=== PATIENT | female | born 1935 | race Caucasian/White ===

== ENCOUNTER 2016-09-27 19:06 | Inpatient (IN) | payer MEDICARE ==
[~2016-09-27] VITALS: Ht 152.4 cm; Wt 54.2 kg
[~2016-09-27 19:06] MED LIST: ANUSOL-HC25 MG RC; ARICEPT5 MG PO; ATIVAN0.5 MG PO; BYSTOLIC5 MG PO; DULCOLAX5 MG PO; HCTZ25 MG PO; MILK OF MAGNESI30 ML PO; SENOKOT-S TABLE1 TAB PO; ZESTRIL40 MG PO
[2016-09-27 19:30] VITALS: BP 193/76
[2016-09-27] MEDS ORDERED: MILK OF MAGNESI30 ML PO (20:02)
[2016-09-27] MEDS ORDERED: NATURAL SENNA8.6 MG PO (20:04)
[2016-09-27] MEDS ORDERED: ZESTRIL20 MG PO (20:05)
[2016-09-27] MEDS ORDERED: ZOLOFT100 MG PO (20:06)
[2016-09-27] MEDS ORDERED: VITAMIN D10000 UNI1 PO (20:06)
[2016-09-27] MEDS ORDERED: ORA RELIEF177 ML PO (20:08)
[2016-09-27] MEDS ORDERED: ACETAMINOPHEN325 MG PO (20:13)
--- NOTE | 2016-09-27 20:16 | NUR ---
PATIENT ARRIVED VIA STRETCHER WITH THREE EMS ASSITING HER, PATIENT HAD BEEN SUICIDAL AND SCREAMING AT THE SENIOR LIVING, SHE WAS VERY UPSET AND AGITATED, SHE HAS TWO SONS THAT YEARS AGO FROM MUSCULAR DYSTROPHY AND SOMEHOW SHE IS VERY UPSET ABOUT THAT. WHEN PATIENT ARRIVED SHE WAS ASSISTED TO A CHAIR AND THEN SHE WAS TAKEN TO HER ROOM TO DO A SKIN ASSESSMENT AND SHE HAD WET HER PANTS SO WE CLEANED HER UP AND PUT ON DEPENDS AND A GOWN. HER SHOES WITH TRINIDAD LACES AND BELT WERE TAKEN FROM HER AT THIS TIME. PATIENT IS DISTRAUGHT AND KEEPS ASKING "WHERE'S ELTON" ELTON IS HER SPOUSE. SHE THEN STARTED YELLING FOR HIM. EXPLAINED THAT HE WOULD SEE HER TOMORROW, SHE IS IN THE HOSPITAL SHE HAD TO COME BECAUSE SHE WAS SCREAMING AND YELLING THAT SHE WANTED TO COMMIT SUICIDE. SHE SAID "WELL, WOULDN'T YOU IF YOUR TWO BABY SONS " SHE IS VERY UPSET, RAHUL AND THIS NURSE TALKED WITH HER IN A CALM VOICE AND SHE RELAXED A LITTLE, BUT SHE CONTINUES TO ASK FOR HER .
[2016-09-27 20:36] VITALS: BP 193/76; BMI 19.7
[2016-09-27 21:21] LABS: BASOPHILS 0.4 % (0.0-2.0); EOSINOPHILS 3.2 % (0-7); HEMATOCRIT 35.7 % (36.0-48.0); HEMOGLOBIN 11.6 g/dL (12-16); IMMATURE GRANULOCYTES 0.3 % (0-5); LYMPHOCYTES 22.8 % (15-50); MCH 29.3 pg (26.0-34.0); MCHC 32.5 g/dL (31.0-37.0); MCV 90.2 fL (80.0-100.0); MEAN PLATELET VOLUME 9.7 fL (7.4-10.4); MONOCYTES 7.6 % (2-11); NEUTROPHILS 65.7 % (40-80); PLATELET COUNT 224 10x3/uL (130-400); RBC 3.96 10x6/uL (4.00-5.40); RDW 13.8 % (11.5-14.5); WBC 6.8 10x3/uL (4.8-10.8)
[2016-09-27 21:36] LABS: HEMOGLOBIN A1C 5.8 % (4.8-6.0)
[2016-09-27 21:47] LABS: ALBUMIN 3.7 g/dL (3.4-5.0); ANION GAP 12.6 mmol/L (8-16); BILIRUBIN - TOTAL 0.23 mg/dL (0.2-1.3); CALCIUM 8.5 mg/dL (8.5-10.1); CREATININE - SERUM 1.1 mg/dL (0.6-1.3); LDL-HDL RATIO 3.8 ratio (1.5-3.5); POTASSIUM - SERUM 3.6 mmol/L (3.5-5.1); PROTEIN - SERUM 6.7 g/dL (6.4-8.2); THYROID STIMULATING HORMONE 2.19 uIU/mL (0.36-3.74)
--- NOTE | 2016-09-28 02:47 | NUR ---
B) Recieved at the nurses station, arrived at the start of shift, alert and oriented to self, looking for here Suman, very confused, and worried, I) Administered perscribed medications, redirected and oriented as needed, R) Medication compliant, resting now quietly, P) Continue plan of care, continue to monitor.
[2016-09-28 07:30] VITALS: BP 191/91
[2016-09-28 14:26] LABS: APPEARANCE CLEAR (CLEAR); BACTERIA MODERATE /hpf (NONE SEEN); BILIRUBIN NEGATIVE (NEGATIVE); COLOR YELLOW (YELLOW); EPITHELIAL CELLS 0-5 /hpf (0-5); GLUCOSE NEGATIVE (NEGATIVE); KETONE NEGATIVE (NEGATIVE); LEUKOCYTE ESTERASE 1+ (NEGATIVE); NITRITE NEGATIVE (NEGATIVE); PH 5.5 (5.0-6.0); PROTEIN 3+ mg/dL (NEGATIVE); RED CELLS - URINE 0-5 /hpf (0-5); SPECIFIC GRAVITY 1.015 (1.005-1.020); UROBILINOGEN NORMAL (NORMAL); WHITE CELLS - URINE 0-5 /hpf (0-5)
--- NOTE | 2016-09-28 17:05 | NUR ---
ORIENTED TO PERSON ONLY. DIFFICULT TO REDIRECT. FREQUENT REDIRECTION DONE WITH NO EVIDENCE OF RETAINING. DENIES SI BUT DOES BECOME TEARFUL WHEN TALKING ABOUT MISSING HER . ALLOWED PT TO TALK TO SPOUSE ON THE PHONE TO HELP CALM HER. COPING SKILLS USED TO HELP PT CALM DOWN. PT PACING THE UNIT AND VERY ANXIOUS. REASSURANCE GIVEN TO PT THAT SHE IS SAFE BUT PT DOES NOT UNDERSTAND. ADMINISTERED MEDICATIONS AND PT WAS COMPLIANT. WILL CONTINUE TO MONITOR AND CONTINUE WITH PLAN OF CARE.
[2016-09-28 19:30] VITALS: BP 185/73
--- NOTE | 2016-09-28 20:07 | NUR ---
RECEIVED IN DAYROOM. SETTING IN CHAIR WITH PEERS AT HER SIDE. SOCIAL AT TIMES. NO SIGNS OF AGGRESSION. CALM AND COOPERATIVE WITH CARE AND ASSESSMENT. ENCOURAGE TO EXPRESS NEEDS. REORIENT NEEDED. CONTINUES TO SET QUEITLY. CONTINUE PLAN OF CARE
[2016-09-29 11:40] VITALS: BP 181/76
--- NOTE | 2016-09-29 13:58 | PSY ---
PATIENT NAME:ELODIA PARNELL MEDICAL RECORD: [id number] : 31 LOCATION:[facility]8 ADMISSION DATE: 09/27/16 ACCOUNT: [id number] PSYCHIATRIC EVALUATION DATE OF EVALUATION: 09/28/16 IDENTIFYING DATA: The patient is 81 years old and she is known to me from previous clinical contact. CHIEF COMPLAINT: Confusion. HISTORY OF PRESENT ILLNESS: The patient is known to me from previous contact. She has a long and established history of dementia. She lives in [facility] and she has had a recent worsening of her confusion and has been combative and aggressive with caregivers. She denies that she lives in a long-term and becomes angry and then tearful when asked about any aggression toward others. She genuinely has no recollection of the events and so at least from her, I do not have any details about exactly what happened. The patient was here about 6 months ago and she was here for similar behaviors. At that time, she was also felt to be depressed. PAST MEDICAL HISTORY: Significant for hemorrhoids and chronic constipation. She also has a history of hypertension. FAMILY HISTORY: Negative for psychiatric disease. ALLERGIES: No known drug allergies. CURRENT MEDICATIONS: Includes Aricept, Bystolic, and Ativan. SOCIAL HISTORY: The patient is . She is a former smoker, but not a drinker. She apparently functioned reasonably well socially and occupationally. She unfortunately lost 2 of her children as teenagers to muscular dystrophy. MENTAL STATUS EXAMINATION: The patient is awake, alert and oriented to person, place and somewhat to time and situation. Her mood is anxious. Her affect is constricted. Thought processes are circumstantial. Memory, concentration and abstraction abilities are moderately impaired and she denies any intent to harm herself or others as well as psychotic symptoms. ASSETS: Supportive family members. LIABILITIES: Limited insight. DIAGNOSTIC IMPRESSION: AXIS I: Senile dementia of the Alzheimer's type with behavioral disturbances. Rule out major depression. AXIS II: None. AXIS III: Hypertension. AXIS IV: Moderate stressors. AXIS V: Global assessment of functioning is 35. PLAN: At this time, the patient is admitted to the hospital for a comprehensive medical, psychological, and social evaluation. She will be treated with both mood stabilizing and memory enhancing medications. Her long-term prognosis is guarded. TRANSINT:[id number] Voice Confirmation ID: [id number] DOCUMENT ID: [id number] JANEL PALMA MD at 1358 CC: [id number] DICTATION DATE: 09/28/16 1247 DROP WIRE BUILDER: 09/28/16 1347 ADM IN [place] [id number] [place] [id number]
--- NOTE | 2016-09-29 18:00 | NUR ---
Received patient this am, alert and oriented to name, not sure of place, cooperative with assessment. Reorient and redirect as need. Encourage activity and monitor safety. Compliant with medications, patient constantly saying she " I want to go home." she thinks she came from home and not [facility], attempts to reorient with patient becoming tearful and saying " I miss Santosh." No aggression or combativeness. Cooperative with care. Continue plan of care.
[2016-09-29 19:30] VITALS: BP 171/64
--- NOTE | 2016-09-29 23:57 | NUR ---
PATIENT WALKING AROUND DAY ROOM WANTING TO GO "UPSTAIRS". PATIENT EASILY REDIRECTED. ORIENTED TO SELF ONLY, NON-AGRESSIVE. CALM, COOPERATIVE WITH MEDICATION. CONTINUE TO MONITOR, CONTINUE PLAN OF CARE.
[2016-09-30 08:20] LABS: VITAMIN D 25 HYDROXY 45.4 ng/mL (30.0-100.0)
[2016-09-30 09:15] LABS: FOLATE (FOLIC ACID) - SERUM 10.6 ng/mL (>3.0)
[2016-09-30 12:28] VITALS: Ht 152.4 cm; Wt 54.2 kg
--- NOTE | 2016-09-30 12:57 | PN ---
PATIENT:ELODIA PARNELL MEDICAL RECORD: [id number] LOCATION:[facility]112 ADMISSION DATE: 09/27/16 PROGRESS NOTE DATE OF SERVICE: 09/29/2016 SUBJECTIVE: The patient's case was discussed with staff. She has no new complaint. OBJECTIVE: The patient is in good behavioral control with limited insight about her condition. She tolerates her medicines well. ASSESSMENT: No change in diagnoses. PLAN: The patient has not been aggressive today. She is eating and sleeping reasonably well. She does become somewhat agitated, especially when she is confused, but so far she has not been excessively difficult to redirect. I think her long-term prognosis is guarded. TRANSINT:[id number] Voice Confirmation ID: [id number] DOCUMENT ID: [id number] JANEL PALMA MD at 1257 CC: [id number] DICTATION DATE: 09/29/16 1416 WORM SORTER: 09/29/162126 ADM IN [place] [id number] [place] [address]
--- NOTE | 2016-09-30 13:00 | NUR ---
Alert and oriented to name. Paces around on unit, " Santosh, oh I miss my Santosh." Tearful at times, one on one time to express feeling. Calm and cooperative with care and redirects easily. No aggression, socializes with peers with no conflict. Good behavior contorl. Encourage to express feelings and needs. Safety maintained. Continue plan of care.
[2016-09-30 13:55] VITALS: BP 118/63
[2016-09-30 20:00] VITALS: BP 143/60
--- NOTE | 2016-09-30 20:41 | NUR ---
RECEIVED IN DAYROOM. WALKING AROUND AT TIMES. CONFUSED. CALM AND COOPERATIVE WITH CARE AND ASSESSMNET. NO SIGNS OF AGGRESSION. CONTINUES TO WALK ABOUT AT TIMES. CALM AND COOPERATIVE. CONTINUE PLAN OF CARE
[2016-10-01 08:00] VITALS: BP 162/65
--- NOTE | 2016-10-01 08:40 | PN ---
PATIENT:ELODIA PARNELL MEDICAL RECORD: [id number] LOCATION:[facility]ill112 ADMISSION DATE: 09/27/16 PROGRESS NOTE DATE OF SERVICE: 09/30/2016 SUBJECTIVE: The patient's case was discussed with staff. She has no new complaint. OBJECTIVE: The patient is in good behavioral control with limited insight about her condition. She does tolerate her medicines well. She has not been aggressive today. PLAN: She will be maintained on current medications and I suspect that she can be discharged from the hospital soon if this level of improvement is maintained. TRANSINT:[id number] Voice Confirmation ID: [id number] DOCUMENT ID: [id number] JANEL PALMA MD at 0840 CC: [id number] DICTATION DATE: 09/30/16 1309 VMWARE ADMINISTRATOR: 09/30/16 2132 ADM IN [place] [id number] [place] [address]
--- NOTE | 2016-10-01 11:03 | NUR ---
B) Patient is awake and alert and she has not mentioned any S.I. today. She is confused, knows her name only, she does not know where she is, but she remembers some of us, but does not know our names. I) Provide prescribed meds and redirect as needed to be calm and let her know she is in the hospital. R) Patient is compliant with meds and unit milieu. P) Continue plan of care.
[2016-10-01 19:57] VITALS: BP 170/68
--- NOTE | 2016-10-02 00:26 | NUR ---
B) Recieved ambulating in the day room, alert and oriented to self only, confused and worried about her , calm and cooperative, I) Administered perscribed medications, reassured patient, R) Medication compliant, friendly to staff, P) Continue plan of care, continue to monitor.
[2016-10-02 08:00] VITALS: BP 141/74
--- NOTE | 2016-10-02 14:00 | NUR ---
B) Patient is very anxious, she is upset about being here, then she goes on to say "no one likes me, she is being mean to me" She makes reference about her being a foster child and how she was treated badly by her foster mother and that we are treating her badly and she goes on and on with the negativity and has started making the other patients restless. Patient ambulates independently. I) Provided patient with ativan 0.5 mg po and haldol 2 mg po for anxiety. R) Patient has been compliant with meds. P) cont. POC.
--- NOTE | 2016-10-02 14:24 | PN ---
PATIENT:ELODIA PARNELL MEDICAL RECORD: [id number] LOCATION:[facility] Dill112 ADMISSION DATE: 09/27/16 PROGRESS NOTE DATE OF SERVICE: 10/01/2016 SUBJECTIVE: The patient's case was discussed with staff. She has no new complaint. OBJECTIVE: The patient denies intent to harm herself or others. She generally tolerates her medicines well. ASSESSMENT: No change in diagnoses. PLAN: The patient seems a little anxious to me today, but overall she has done better the past few days. Her long-term prognosis is guarded. TRANSINT:[id number] Voice Confirmation ID: [id number] DOCUMENT ID: [id number] JANEL PALMA MD at 1424 CC: [id number] DICTATION DATE: 10/01/16 1303 CLINICAL RESEARCHER: 10/01/16 1620 ADM IN [place] [address] [place] [address]
--- NOTE | 2016-10-02 14:30 | NUR ---
Patient still fussing and crying and not self calming or using any coping skills, have gone over some relaxation methods, but patient gets more and more irritable with staff. Other patients try to talk to her and she cries and says "I just want to be left alone".
--- NOTE | 2016-10-02 15:00 | NUR ---
Patient has calmed alittle not crying and has started to interact with her peers.
[2016-10-02 19:00] VITALS: BP 155/106
--- NOTE | 2016-10-03 03:13 | NUR ---
B) Recieved ambulating in the day room, alert and oriented to self, confused and worried about everything, I) Administered perscribed medications, redirected and oriented as needed, R) Medication compliant, pleasant and easy to redirect, P) Continue plan of care.
[2016-10-03 08:00] VITALS: BP 165/67
--- NOTE | 2016-10-03 16:11 | NUR ---
(B)RECEIVED PATIENT SITTING IN A CHAIR AT THE NURSES STATION. ORIENTED TO SELF AND RELATES "[place] POOR INSIGHT INTO THE REASON FOR HOSPITALIZATION. WHEN INFORMED PATIENT OF THE REASONS FOR HOSPITALIZATION PATIENT RELATES "I DIDN'T HIT ANYBODY. JUST TALKED. CUSSED. I WOULDN'T DO ANYTHING TO HURT MY ." PREOCCUPIED WITH AND WANTING TO SEE HIM AND GO HOME TO HIM. DELUSIONAL RELATING SHE AND HER ARE GOING TO HAVE TO MOVE SOON THAT WHERE THEY ARE LIVING WAS ONLY A TEMPORARY PLACE TO STAY AND THEY HAVE A PLACE ON A MOUNTAIN. SITS ALONE HOWEVER WILL TALK TO PEERS IF THEY APPROACH HER AND START A CONVERSATION. (I)ADMINISTER MEDS AND MONITOR COMPLIANCE. REORIENT NEEDED. (R)MED COMPLIANT. POOR REORIENTATION DUE TO IMPAIRED ABILITY TO COMPREHEND, PROCESS AND RETAIN INFORMATION. CONTINUES TO BE PREOCCUPIED WITH SEEING HER AND GOING HOME. COOPERATIVE HOWEVER CAN NOT SEPARATE REALITY FROM FANTASY. (P) CONTINUE POC AND MAINTAIN FALL PRECAUTIONS.
[2016-10-03 19:30] VITALS: BP 172/86
--- NOTE | 2016-10-04 00:02 | NUR ---
PATIENT IN DAYROOM, INTERACTING WITH PEERS. SHE IS ORIENTED TO PERSON, KNEW SHE WAS IN A HOSPITAL BUT SAID IT WAS IN [place]. PATIENT WAS REORIENTED. WHEN ASKED WHY SHE WAS HERE, PATIENT SAID BECAUSE SHE CUSSED AT SOMEONE, BUT "KNOWS NOW TO KEEP MY MOUTH SHUT". PATIENT CALM, COOPERATED WITH MEDICATION. CONTINUE TO MONITORM, CONTINUE PLAN OF CARE.
--- NOTE | 2016-10-04 17:02 | NUR ---
RECEIVED THIS AM SITTING IN CHAIR IN HALLWAY AT NURSES STATION.IS ORIENTED TO SELF AND TOWN.REORIENTED TO PLACE WITH QUESTIONABLE RESULTS.COMPLIANT WITH MEDS.SOCIALIZES WITH PEERS.AMBULATORY.WILL CONTINUE WITH PLAN OF CARE,MONITOR FOR CHANGES AND SAFETY.
[2016-10-04 19:30] VITALS: BP 188/56
--- NOTE | 2016-10-05 02:59 | NUR ---
PATIENT IN DAYROOM, SITTING NEXT TO PEER ON COUCH. PATIENT ORIENTED TO SELF AND SOME HOSPITAL, PATIENT REORIENTED. NON-COMBATIVE, ABILITY TO FOLLOW DIRECTIONS, PLEASANT. CALM AND COOPERATIVE WITH MEDICATION. CONTINUE TO MONITOR, CONTINUE PLAN OF CARE.
--- NOTE | 2016-10-05 06:10 | PN ---
PATIENT:ELODIA PARNELL MEDICAL RECORD: [id number] LOCATION:[facility] Dill112 ADMISSION DATE: 09/27/16 PROGRESS NOTE DATE OF SERVICE: 10/03/2016 SUBJECTIVE: No new complaint. OBJECTIVE: The patient remains rather irritable. She is fixated on somatic complaints primarily going to the bathroom. On exam, mood is irritable. Affect is shallow. Speech is terse. Content of thought focused on somatic concerns. Sensorium shows no change. ASSESSMENT: No change in diagnosis. PLAN: 1. Continue all current medications. 2. Continue supportive therapy. TRANSINT:[id number] Voice Confirmation ID: [id number] DOCUMENT ID: [id number] ZIA CHRISTOPHER III, MD at 0610 CC: [id number] DICTATION DATE: 10/03/16 1156 INSIDE PLANT SUPERVISOR: 10/03/16 1748 ADM IN [place] [id number] [place] [address]
[2016-10-05 10:51] VITALS: BP 181/55
--- NOTE | 2016-10-05 11:18 | NUR ---
RECEIVED THIS AM AMBULATING IN HALLWAY WITH STEADY GAIT.IS ORIENTED TO SELF ONLY.POOR INSITE TO WHY SHE IS HERE.IS CALM AND COOPERATIVE AT PRESENT TIME BUT CAN BECOME VERY ANXIOUS AND OBSESSED ABOUT GOING HOME TO SPOUSE.CAN BE VERY ARGUMENTIVE.IS COMPLIANT WITH MEDS,VISITS WITH PEERS.WILL CONTINUE WITH PLAN OF CARE,MONITOR FOR CHANGES AND SAFETY.
--- NOTE | 2016-10-05 23:26 | NUR ---
PATIENT IN DAYROOM, WALKING AROUND INTERACTING WITH PEERS. ORIENTED TO PERSON, TIME AND SITUATION. WHEN ASKED WHY SHE WAS HERE, SHE REPLIED SHE HAD GOTTEN UPSET AND NOW SHE KNOWS BETTER. SHE STATES SHE'S IN A HOSPITAL BUT HAS DIFFICULTY SAYING THE NAME. PATIENT SAYS SHE MISSES HER THAT "HE'S THE [place] IN THE [place]". PATIENT REORIENTED. CALM AND COOPERATIVE, PATIENT TALKED ABOUT HER CHILDREN AND SAID SHE HAD LOST THEM TO MUSCULAR DISTROPHY. PATIENT WAS ENCOURAGED TO DISCUSS HER FEELINGS. PATIENT DENIES SUICIDAL IDEATION OR FEELINGS OF SELF HARM. CONTINUE TO MONITOR, CONTINUE PLAN OF CARE.
--- NOTE | 2016-10-05 23:41 | NUR ---
PATIENT COMPLAINTS OF SORE THROAT, THAT IS PRECIPITATED BY SINUS DRAINAGE AND COUGHING. PATIENT GIVEN TYLENOL PRN. CONTINUE TO MONITOR
[2016-10-06 08:12] VITALS: BP 149/74
--- NOTE | 2016-10-06 14:11 | PN ---
PATIENT:ELODIA PARNELL MEDICAL RECORD: [id number] LOCATION:[facility] Dill112 ADMISSION DATE: 09/27/16 PROGRESS NOTE DATE OF SERVICE: 10/02/2016 SUBJECTIVE: The patient's case was discussed with staff. She has no new complaint. She continues to be quite anxious and wanders a fair amount. She clearly is impaired significantly. ASSESSMENT: No change in diagnoses. PLAN: The patient will be given Namenda at a dose of 2.5 mg twice daily. Namenda is being used to treat her underlying psychotic symptoms. She will be monitored for clinical changes associated with its use. TRANSINT:[id number] Voice Confirmation ID: [id number] DOCUMENT ID: [id number] JANEL PALMA MD at 1411 CC: [id number] DICTATION DATE: 10/02/16 1524 PIPE FITTINGS MOLDER: 10/02/16 1541 ADM IN [place] [id number] [place] [address]
--- NOTE | 2016-10-06 16:02 | NUR ---
RECEIVED THIS AM IN BED.AMBULATORY .ORIENTED TO SELF ONLY.NO INSITE TO WHY SHE IS HERE.STATES"I WOULD NEVER HIT ANYONE."VOICES CONCERN ABOUT HER ,TEARS ON HER CHEEKS.STATE'S "HE IS ALL I HAVE."COMPLIANT WITH MEDS AND STAFF.VISITS WITH PEERS.NO SIGNS OF AGGRESSION OBSERVED.WILL CONTINUE WITH PLAN OF CARE,MONITOR FOR CHANGES AND SAFETY.
--- NOTE | 2016-10-06 20:18 | NUR ---
RECEIVED IN DAYROOM. SETTING IN RECLINER. WALKING AROUND AT TIMES. STATES SHE IS READY FOR BED.. CALM AND COOPERATIVE WITH CARE AND ASSESSMENTS. NO SIGNS OF AGGRESSION. REDIRECT AND REORIENT NEEDED. CONTINUE TO SET IN RECLINER SOCIALIZING AT TIMES. CONTINUE PLAN OF CARE
[2016-10-06 21:45] VITALS: BP 171/72
[2016-10-07 09:21] VITALS: BP 155/58
--- NOTE | 2016-10-07 10:35 | NUR ---
Nutrition Follow Up: Chart reviewed. Pt is eating 63% meal avg on a Regular diet. Wt gain of 20# since admit - (scales?). +BM 10/06/16. Meds noted. No new labs to assess. Pt with fair po intake at this time. Rec continue current diet. Will continue to send selective menus and honor food preferences. RD following.
--- NOTE | 2016-10-07 14:14 | PN ---
PATIENT:ELODIA PARNELL MEDICAL RECORD: [id number] LOCATION:[facility] Dill112 ADMISSION DATE: 09/27/16 PROGRESS NOTE DATE OF SERVICE: 10/06/2016 SUBJECTIVE: The patient's case was discussed with staff. She has no new complaint. OBJECTIVE: The patient denies intent to harm herself or others. She is quite impaired cognitively, but much calmer than she has previously been. ASSESSMENT: No change in diagnoses. PLAN: Weighing the relative risks and benefits of benzodiazepine in this patient and this patient population, I think the medication is helping her. She is much calmer. She is much more appropriate. I will maintain her on current medicines and would anticipate she can be discharged in a few days if this level of improvement is maintained. TRANSINT:[id number] Voice Confirmation ID: [id number] DOCUMENT ID: [id number] JANEL PALMA MD at 1414 CC: [id number] DICTATION DATE: 10/06/16 1438 PSYCHOLOGIST ENGINEERING: 10/06/162023 ADM IN [place] [address] [place] [id number]
--- NOTE | 2016-10-07 15:03 | NUR ---
(B)RECEIVED PATIENT SITTING IN A CHAIR AT THE NURSES STATION. ORIENTED TO SELF, HOSPITAL, [place] AND MONTH. WHEN ASKED THE REASON FOR HOSPITALIZATION PT RELATES "I WAS COMBATIVE SOMEONE SAID. I'VE NEVER BEEN COMBATIVE. ALL I DO IS COOK, CLEAN AND TAKE CARE OF MY . WATCH TV AND MIND MY OWN BUSINESS." COOPERATIVE WITH STAFF. (I)ADMINISTER MEDS AND MONITOR COMPLIANCE. MONITOR FOR COMBATIVE BEHAVIOR AND REDIRECT NEEDED. (R)MED COMPLIANT. NO COMBATIVENESS NOTED. COOPERATIVE WITH UNIT MILEU. (P)CONTINEU POC AND MAINTAIN FALL PRECAUTIONS.
[2016-10-07 19:39] VITALS: BP 169/66
--- NOTE | 2016-10-07 20:16 | NUR ---
RECEIVED IN DAYROOM. WALKING ABOUT . INTRUSIVE AT TIMES. SOCIALIZING WITH PEERS AND STAFF AT TIMES. CALM AND COOPERATIVE WITH CARE AND ASSESSMENTS. NO SIGNS OF AGGRESSION. SETTING IN CHAIR CALM AND COOPERATIVE AT THIS TIME. CONTINUE PLAN OF CARE
[2016-10-08 08:00] VITALS: BP 173/60
--- NOTE | 2016-10-08 15:02 | NUR ---
RECEIVED THIS AM SITTING IN CHAIR AT NURSES STATION.IS ORIENTED TO SELF ONLY,HAS POOR INSITE INTO WHY SHE IS HERE.NO AGGRESSION OBSERVED.VISITS WITH PEERS.WILL CONTINUE WITH PLAN OF CARE,MONITOR FOR CHANGES AND SAFETY.
[2016-10-08 20:00] VITALS: BP 189/70
--- NOTE | 2016-10-09 03:41 | NUR ---
PATIENT WALKING AROUND DAYROOM. OREINTED TO SELF NOT TIME OR SITUATION. PATIENT REORIENTED. PLEASANT, NON-COMBATIVE AND STATING SHE IS READY TO GO TO BED. CONTINUE TO MONITOR.
[2016-10-09 08:14] VITALS: BP 152/65
--- NOTE | 2016-10-09 12:38 | PN ---
PATIENT:ELODIA PARNELL MEDICAL RECORD: [id number] LOCATION:[facility] Dill112 ADMISSION DATE: 09/27/16 PROGRESS NOTE DATE OF SERVICE: 10/08/2016 SUBJECTIVE: The patient's case was discussed with staff. She has no new complaint. OBJECTIVE: The patient is pleasant and cooperative today. She is significantly and seriously impaired cognitively, but she is not aggressive or agitated. ASSESSMENT: No change in diagnoses. PLAN: Current medicines and therapies have been reviewed and will be maintained. Long-term prognosis is guarded. TRANSINT:[id number] Voice Confirmation ID: [id number] DOCUMENT ID: [id number] JANEL PALMA MD at 1238 CC: [id number] DICTATION DATE: 10/08/16 1411 TOOL CLERK: 10/08/16 1933 ADM IN [facility] [address] [place] [address]
--- NOTE | 2016-10-09 12:38 | PN ---
PATIENT:ELODIA PARNELL MEDICAL RECORD: [id number] LOCATION:[facility] Dill112 ADMISSION DATE: 09/27/16 PROGRESS NOTE DATE OF SERVICE: 10/07/2016 SUBJECTIVE: The patient's case was discussed with staff. She has no new complaint. OBJECTIVE: The patient has been significantly agitated. She is difficult to redirect at those times, but I think the agitation is related to the confusion. That is to say she can understand what is going on around her and as a result, she becomes upset. I have had that belief about her situation for a while and as a result I have been giving her scheduled dose of Ativan. At this point, I am going to discontinue the Ativan and will try her on a longer acting benzodiazepine at the same milligram dose and frequency. I am concerned that it may make her a little bit sedated, which would increase her fall risk, but she truly is difficult to manage as well as experiencing a genuine psychological distress, but I cannot relieve in other ways since she is too impaired to understand and process complicated information. TRANSINT:[id number] Voice Confirmation ID: [id number] DOCUMENT ID: [id number] JANEL PALMA MD at 1238 CC: [id number] DICTATION DATE: 10/07/16 1443 SUPERVISOR CORDUROY CUTTING: 10/07/16 2350 ADM IN [place] [address] [place] [address]
[2016-10-09] MEDS ORDERED: FEXOFENADINE HC60 MG PO (13:00)
[2016-10-09] MEDS ORDERED: BYSTOLIC5 MG PO (13:01)
[2016-10-09] MEDS ORDERED: KLONOPIN0.5 MG PO (13:01)
[2016-10-09] MEDS ORDERED: NAMENDA5 MG PO (13:02)
[2016-10-09] MEDS ORDERED: LINZESS145 MCG PO (13:03)
--- NOTE | 2016-10-09 17:56 | NUR ---
(B)RECEIVED PATIENT SITTING IN A CHAIR AT THE NURSE'S STATION. ORIENTED TO SELF AND [facility]. RELATES REASON FOR HOSPITALIZATION "CAN'T REMEMBER ANYTHING" AND LAUGHED AFTER SAYING THIS. SOCIAL WITH PEERS. CALM AND COOPERATIVE. (I)ADMINISTER MEDS AND MONITOR COMPLIANCE. REORIENT NEEDED. (R)MED COMPLIANT. DID NOT WANT THE [place] RELATING "THE LAST TIME I HAD THAT I FILLED MY BRITCHES." POOR REORIENTATION DUE TO IMPAIRED ABILITY TO COMPREHEND, PROCESS AND MAINTAIN INFORMATION. (P)CONTINUE POC AND MAINTAIN FALL PRECAUTIONS.
[2016-10-09 19:30] VITALS: BP 191/79
--- NOTE | 2016-10-09 22:00 | NUR ---
B) Resltess, wandering around dayroom. Anxious to get back to her room, noted to have bilateral ankle edema, claims she has been sitting up for 20 hours and was unable to put her feet up. Socializing with select peers, pleasant. I) Administer medications as ordered, redirect and reorient PRN. R) Oriented to person and place but not to time or situation. Compliant with medications. Slight wheeze heard when listening to lungs. Denies SOB. No aggression, easily directed. P) Continue to monitor per plan of care.
[2016-10-10 09:40] VITALS: BP 153/55
--- NOTE | 2016-10-10 10:30 | NUR ---
B.) Alert and oriented to name, place and situation. Patient states she is here for " they say combative something." I.) Administer medications and monitor compliance. Redirect and reorient as need. Monitor safety. R.) Compliant with medications, calm and cooperative with care. Social and pleasant with others. No aggression. Compliant with unit milieu. P.) Continue with plan for discharge today. Patient educated on discharge and verbalized understanding.
--- NOTE | 2016-10-10 11:10 | NUR ---
[facility] staff here to transport patient back to facility. Discharge with no incident. Report called to Jitendra Booker LPN.
--- NOTE | 2016-10-10 13:42 | PN ---
PATIENT:ELODIA PARNELL MEDICAL RECORD: [id number] LOCATION:[facility] Dill112 ADMISSION DATE: 09/27/16 PROGRESS NOTE DATE OF SERVICE: 10/09/2016 SUBJECTIVE: The patient's case was discussed with staff. She has no new complaint. OBJECTIVE: The patient is in good behavioral control with limited insight about her condition. She tolerates her medicines well. ASSESSMENT: No change in diagnoses. PLAN: Brief supportive and educational interventions were made. I anticipate the patient can be transitioned out of the hospital soon. Her nursing home prognosis is guarded. TRANSINT:[id number] Voice Confirmation ID: [id number] DOCUMENT ID: [id number] JANEL PALMA MD at 1342 CC: [id number] DICTATION DATE: 10/09/16 1259 MATERIAL HANDLER FLOORPERSON: 10/09/162025 ADM IN [place] [address] [place] [address]
--- NOTE | 2016-10-13 13:41 | PN ---
PATIENT:ELODIA PARNELL MEDICAL RECORD: [id number] LOCATION:[facility]112 ADMISSION DATE: 09/27/16 PROGRESS NOTE DATE OF SERVICE: 10/10/2016 SUBJECTIVE: The patient's case was discussed with staff. She has no new complaint. OBJECTIVE: The patient is in good behavioral control, but very impaired cognitively. ASSESSMENT: No change in diagnoses. PLAN: The patient will be transitioned out of the hospital today. She is going to go to the [facility]. I do not think she represents a risk to herself or others at the senior care. TRANSINT:[id number] Voice Confirmation ID: [id number] DOCUMENT ID: [id number] JANEL PALMA MD at 1341 CC: [id number] DICTATION DATE: 10/10/16 1411 EQUINE INTERNSHIP: 10/10/162037 DIS IN 10/10/16 [facility] [address] [place] [address]
--- NOTE | 2016-10-15 16:33 | DS ---
PATIENT:ELODIA PARNELL :31 MEDICAL RECORD: [id number] DISCHARGE SUMMARY ADMISSION DATE: 09/27/16 DISCHARGE DATE: 10/10/16 Psychiatric Discharge Summary IDENTIFYING DATA: The patient is 81 years old and she was admitted to the hospital on a voluntary basis secondary to confusion. The patient is known to me from previous clinical contact and has a long and established history of dementia with behavioral problems. Most recently, she was in the [facility] where she became acutely confused, combative and aggressive with caregivers. This was done and situated, she was so angry and tearful and aggressive that the [facility] felt she was no longer safe there and referred her for admission. HOSPITAL COURSE: The patient was admitted to the hospital and fully evaluated from both a medical, psychological, and social standpoint. She was found to have a dementia of the Alzheimer's type and was treated with both mood stabilizing and memory enhancing medications. She was subsequently stabilized and transitioned out of the hospital back to a [facility]. DISCHARGE DIAGNOSES: AXIS I: Senile dementia of the Alzheimer's type with behavioral disturbances. AXIS II: None. AXIS III: Hypertension. AXIS IV: Moderate stressors. AXIS V: Global assessment of functioning is 40. PLAN: At the time of discharge, the patient was in good behavioral control with no thoughts of harming herself or others. She was tolerating her medicines well. Followup is to be with her primary care [facility] physician. Her long-term prognosis is guarded. TRANSINT:[id number] Voice Confirmation ID: [id number] DOCUMENT ID: [id number] JANEL PALMA MD at 1633 CC: [id number] DICTATION DATE: 10/14/16 1512 PROCESSING REP: 10/15/16 0159 DIS IN 10/10/16 [id number] [place] [id number]
== END 2016-10-10 11:10 | DRG 57 ==
LOC: D.PSYCH 19:06
PROVIDERS: ADMIT Psychiatry & Neurology Psychiatry
DX: G30.1 Alzheimer's disease with late onset (principal); F02.81 Dementia in other diseases classified elsewhere, unspecified severity, with behavioral disturbance; R45.851 Suicidal ideations; I10 Essential (primary) hypertension; D50.9 Iron deficiency anemia, unspecified; K64.9 Unspecified hemorrhoids; K59.09 Other constipation; E78.5 Hyperlipidemia, unspecified; E55.9 Vitamin D deficiency, unspecified; J30.9 Allergic rhinitis, unspecified

== ENCOUNTER 2017-01-16 09:09 | Emergency (ER) | payer MEDICARE ==
[2016-09-30 12:28] VITALS: BMI 19.5
[~2017-01-16 09:09] MED LIST changes: +ACETAMINOPHEN325 MG PO; +FEXOFENADINE HC60 MG PO; +KLONOPIN0.5 MG PO; +LINZESS145 MCG PO; +NAMENDA5 MG PO; +NATURAL SENNA8.6 MG PO; +ORA RELIEF177 ML PO; +VITAMIN D10000 UNI1 PO; +ZESTRIL20 MG PO; +ZOLOFT100 MG PO
[2017-01-16 10:20] LABS: APPEARANCE CLEAR (CLEAR); BACTERIA FEW /hpf (NONE SEEN); BILIRUBIN NEGATIVE (NEGATIVE); COLOR YELLOW (YELLOW); EPITHELIAL CELLS 0-5 /hpf (0-5); GLUCOSE NEGATIVE (NEGATIVE); KETONE NEGATIVE (NEGATIVE); LEUKOCYTE ESTERASE TRACE (NEGATIVE); NITRITE NEGATIVE (NEGATIVE); PROTEIN TRACE mg/dL (NEGATIVE); RED CELLS - URINE 0-5 /hpf (0-5); SPECIFIC GRAVITY 1.015 (1.005-1.020); UROBILINOGEN NORMAL (NORMAL); WHITE CELLS - URINE 0-5 /hpf (0-5)
[2017-01-16 10:29] LABS: UDS - AMPHET NEGATIVE QUAL (NEGATIVE); UDS - BARB NEGATIVE QUAL (NEGATIVE); UDS - BENZO NEGATIVE QUAL (NEGATIVE); UDS - COCAINE NEGATIVE QUAL (NEGATIVE); UDS - METH NEGATIVE QUAL (NEGATIVE); UDS - OPIATE NEGATIVE QUAL (NEGATIVE); UDS - PCP NEGATIVE QUAL (NEGATIVE); UDS - THC NEGATIVE QUAL (NEGATIVE)
[2017-01-16 10:52] LABS: BASOPHILS 0.2 % (0-2); EOSINOPHILS 0.3 % (0-7); HEMATOCRIT 39.6 % (36.0-48.0); IMMATURE GRANULOCYTES 0.2 % (0-5); MCH 29.5 pg (26.0-34.0); MCHC 32.8 g/dL (31.0-37.0); MCV 89.8 fL (80.0-100.0); MONOCYTES 5.6 % (2-11); NEUTROPHILS 85.7 % (40-80); PLATELET COUNT 220 10x3/uL (130-400); RBC 4.41 10x6/uL (4.00-5.40); RDW 13.8 % (11.5-14.5); WBC 10.4 10x3/uL (4.8-10.8)
[2017-01-16 11:00] LABS: APTT 24.4 SECONDS (22.8-39.4); INR 1.04 (0.85-1.17); PROTIME 13.5 SECONDS (11.6-15.0)
[2017-01-16 11:11] LABS: ALBUMIN 3.7 g/dL (3.4-5.0); ALKALINE PHOSPHATASE 61 U/L (46-116); ALT (SGPT) 31 U/L (10-68); CALC OSMOLALITY 279 mosm/kg (275-300); CALCIUM 8.9 mg/dL (8.5-10.1); CARBON DIOXIDE 27.4 mmol/L (21.0-32.0); CHLORIDE - SERUM 101 mmol/L (98-107); GLUCOSE 119 mg/dL (74-106); POTASSIUM - SERUM 3.6 mmol/L (3.5-5.1); PROTEIN - SERUM 7.1 g/dL (6.4-8.2); SODIUM 138 mmol/L (136-145); UREA NITROGEN 21 mg/dL (7-18); eGFR NON AFRICAN AMERICAN 56 mL/min (90-120)
[2017-01-16 11:32] LABS: CKMB 17.7 U/L (0.0-3.6); CREATINE KINASE 1371 UL (21-215)
== END 2017-01-16 14:11 | disposition home or self-care (01) ==
LOC: D.ER 09:09
PROVIDERS: Emergency Medicine
DX: R53.1 Weakness (principal); F03.90 Unspecified dementia, unspecified severity, without behavioral disturbance, psychotic disturbance, mood disturbance, and anxiety; W19.XXXA Unspecified fall, initial encounter; Z91.81 History of falling; I10 Essential (primary) hypertension

== ENCOUNTER 2017-01-20 14:16 | Inpatient (IN) | payer MEDICARE ==
[~2017-01-20] VITALS: Ht 152.4 cm; Wt 58.1 kg
--- NOTE | ~2017-01-20 | DS ---
PATIENT:ELODIA PARNELL :31 MEDICAL RECORD: [id number] DISCHARGE SUMMARY ADMISSION DATE: 01/20/17 DISCHARGE DATE: 01/29/17 DATE OF ADMISSION: 01/20/2017. DATE OF DISCHARGE: 01/29/2017. HISTORY: An 81-year-old white female who was readmitted to [facility] from [facility]. This is her third [facility] admission. The patient has a past history of Alzheimer dementia with behavioral disturbance. She had again begun showing noncompliance with treatment and aggressiveness with caregivers. The patient continued to escalate. She also gave evidence of significant depression. Because of worsening mental status she was admitted. For further details, please see previously dictated history. COURSE IN THE HOSPITAL: The patient was seen by Dr. Suazo who follows her regularly. He noted the presence of hypertension, iron deficiency anemia, hyperlipidemia, vitamin D deficiency and chronic constipation. Following hospitalization, the patient was maintained on Zoloft 100 mg daily, Namenda 2.5 mg twice a day, Aricept 5 mg h.s., Klonopin 0.5 mg b.i.d. Nonpsychiatric medications included Senokot, Bystolic, Sharlene, vitamin D supplements, calcium supplements, Linzess 145 mcg daily, lisinopril 20 mg twice a day. The patient made good progress in the hospitalization, the patient does well generally in a controlled environment. She was receptive regarding medication and affect improved considerably. By the time of discharge, the patient was euthymic and stable enough to return to the [facility] environment. FINAL DIAGNOSES: AXIS I: Alzheimer dementia with behavioral disturbance, history of depression. AXIS II: No diagnosis. AXIS III: Hypertension, hypercholesterolemia, chronic constipation. AXIS IV: Moderate. AXIS V: 40. PLAN: 1. The patient is discharged on current medications. 2. Diet and activities as tolerated. 3. Follow up through primary care physician. TRANSINT:[id number] Voice Confirmation ID: [id number] DOCUMENT ID: [id number] ZIA CHRISTOPHER III, MD CC: [id number] DICTATION DATE: 01/29/17 1142 BUCKLE ATTACHING MACHINE OPERATOR: 01/30/17 0307 DIS IN 01/29/17 [place] [address]
[2017-01-20] MEDS ORDERED: FEXOFENADINE H180 MG PO (14:45)
[2017-01-20] MEDS ORDERED: CALCIUM 600+D T1 TA1 PO (14:47)
[2017-01-20 14:56] VITALS: BP 184/67; BMI 25.2
--- NOTE | 2017-01-20 15:23 | NUR ---
PT ADMITTED FROM [facility] FOR INCREASED AGITATION, PASSIVE WISH TO BECAUSE SHE CANNOT LIVE WITH HER SPOUSE, AND NOT SLEEPING. PT WAS ALSO NOT TAKING HER MEDICATION. PT GAVE VERBALE CONSENT FOR TREATMENT. BELONGINGS WITH WATCH LOGGED AND PUT IN STORAGE. DENTURES ARE IMPLANTS. NO GLASSES NOTED. PT CONTINUES TO CRY AND CALL OUT FOR "FAB". PT CAN BE REDIRECTED. NO AGGRESSION AT TIME OF ADMIT. ORIENTED TO PERSON AND THE FACT SHE IS IN A HOSPITAL BUT NOT WHICH ONE. FALL PRECAUTIONS INITIATED. CODE STATUS ADDRESSED AND PT IS A DNR. COPY OF DNR IN CHART. WILL CONTINUE TO MONITOR AND INIITATE CARE PLAN.
[2017-01-20 15:26] VITALS: BP 184/67; BMI 25.2
[2017-01-20 15:30] LABS: BASOPHILS 0.3 % (0-2); EOSINOPHILS 2.5 % (0-7); HEMOGLOBIN 12.2 g/dL (12-16); IMMATURE GRANULOCYTES 0.1 % (0-5); LYMPHOCYTES 16.8 % (15-50); MCH 29.8 pg (26.0-34.0); MCV 90.2 fL (80.0-100.0); MEAN PLATELET VOLUME 9.8 fL (7.4-10.4); MONOCYTES 7.2 % (2-11); NEUTROPHILS 73.1 % (40-80); PLATELET COUNT 246 10x3/uL (130-400); WBC 6.7 10x3/uL (4.8-10.8)
[2017-01-20 15:51] LABS: HEMOGLOBIN A1C 5.6 % (4.8-6.0)
[2017-01-20 16:00] LABS: ALBUMIN 3.7 g/dL (3.4-5.0); BILIRUBIN - TOTAL 0.33 mg/dL (0.2-1.3); CALCIUM 8.9 mg/dL (8.5-10.1); CARBON DIOXIDE 25.8 mmol/L (21.0-32.0); CHOL - HDL RATIO 6.4 ratio (2.3-4.1); CREATININE - SERUM 1.2 mg/dL (0.6-1.3); LDL-HDL RATIO 4.2 ratio (1.5-3.5); POTASSIUM - SERUM 3.8 mmol/L (3.5-5.1); PROTEIN - SERUM 6.8 g/dL (6.4-8.2); THYROID STIMULATING HORMONE 1.89 uIU/mL (0.36-3.74)
--- NOTE | 2017-01-20 21:09 | NUR ---
RECEIVED IN DAYROOM. SITTING IN WHEELCHAIR WITH STAFF AND PEERS AT HER SIDE. CONFUSED. ORIENTED TO SELF ONLY. CALM AND COOPERATIVE WITH CARE AND ASSESSMENTS. REDIRECT AND REORIENT NEEDED. RESTING IN BED AT THIS TIME. CONTINUE PLAN OF CARE
[2017-01-20 22:53] VITALS: BP 184/67
[2017-01-21 06:12] LABS: APPEARANCE CLEAR (CLEAR); COLOR YELLOW (YELLOW); SPECIFIC GRAVITY 1.015 (1.005-1.020)
[2017-01-21 06:13] LABS: BACTERIA FEW /hpf (NONE SEEN); BILIRUBIN NEGATIVE (NEGATIVE); GLUCOSE NEGATIVE (NEGATIVE); KETONE NEGATIVE (NEGATIVE); LEUKOCYTE ESTERASE TRACE (NEGATIVE); MUCUS <1+ /lpf (NONE SEEN); NITRITE NEGATIVE (NEGATIVE); PROTEIN NEGATIVE (NEGATIVE); UROBILINOGEN NORMAL (NORMAL)
[2017-01-21 08:01] VITALS: BP 179/89
--- NOTE | 2017-01-21 09:00 | NUR ---
B) PATIENT IS CONFUSED, SHE ASKS WHY AM I HERE, I DON'T BELONG HERE. SHE IS SELF PROPELLING IN A W/C. SHE IS AWAKE, BUT ORIENTED TO HER NAME ONLY. SHE ASKS DOES SOMEONE KNOW WHERE I AM? EXPLAINED TO HER THAT HER KNOWS SHE IS HERE. I) PROVIDE PRESCRIBED MEDS. R) PATIENT IS COMPLIANT WITH MEDS. P) CONTINUE POC.
--- NOTE | 2017-01-21 12:53 | NUR ---
PATIENT IS ANXIOUS AND TALKING ABOUT HER AND HOW SHE THINKS HE IS FED UP WITH HER AND THAT SHE THINKS HE IS GOING TO LEAVE HER, THEN SHE BEGAN FRETTING ABOUT HER TWO SONS. SHE HAS BEEN THROUGH A LOT, BUT SHE MAKES HERSELF VERY NERVOUS. SHE HAS POOR SHORT TERM MEMORY RECALL. SHE GETS VERY UPSET AND NEARLY CRIES. ATIVAN 0.5 MG PO GIVEN NOW.
--- NOTE | 2017-01-21 14:00 | NUR ---
PATIENT IS LESS ANXIOUS, SHE IS INTERACTING IN ACTIVITIES, PUTTING A PUZZLE TOGETHER WITH STAFF AND PEERS.
[2017-01-21 14:50] VITALS: Ht 152.4 cm; Wt 58.1 kg
[2017-01-21 20:00] VITALS: BP 174/89
--- NOTE | 2017-01-22 01:50 | NUR ---
B) Recieved patient in the day room, alert and oriented to self, very confused and anxious at times, wanting her , I) Administered perscribed medications, monitored for safety and falls, R) Medication compliant, resting quietly in bed, P) Continue plan of care, continue to monitor.
[2017-01-22 08:00] VITALS: BP 138/74
[2017-01-22 09:19] LABS: FOLATE (FOLIC ACID) - SERUM 12.5 ng/mL (>3.0)
--- NOTE | 2017-01-22 10:17 | PSY ---
PATIENT NAME:ELODIA PARNELL MEDICAL RECORD: [id number] : 31 LOCATION:[facility] Fuentes1129 ADMISSION DATE: 01/20/17 ACCOUNT: [id number] PSYCHIATRIC EVALUATION DATE OF EVALUATION: 01/21/17 IDENTIFYING DATA: An 81-year-old white female, who is admitted on transfer from [facility]. HISTORY OF PRESENT ILLNESS: This is the patient's third [facility] admission. She has been admitted twice before because of agitation associated with her dementia. Previous admission occurred in September of this year. At that time, the patient had been noncompliant with treatment and had been aggressive with her caregivers. She had been refusing medication as well. The patient had been admitted under similar circumstances prior that. Subsequent to her last admission, the patient's , who had lived with her in [place], elected to have them discharged. They attempted to live at home, but things went quite poorly and they were eventually readmitted to [place] for a period of time earlier this month. The patient was without any of her usual psychotropic medications and concomitant with this, she has become worse in terms of her confusion and agitation. The patient does have a past history of depression as well. On previous admission, she was labile and tearful frequently. PAST MEDICAL HISTORY: Significant for hypertension, as well as chronic constipation and inhalant allergies. ALLERGIES: The patient is allergic to no known medications. SHE IS ALLERGIC TO COCONUT PRODUCTS. CURRENT MEDICATIONS: At the time of admission included Zoloft 100 mg daily, Senokot 1 tab daily, Bystolic 10 mg daily, Sharlene 180 mg daily, vitamin D supplements, vitamin C supplements, Linzess 145 mcg daily, Namenda 2.5mg twice a day, lisinopril 20 mg twice a day, Aricept 5 mg h.s., Klonopin 0.5 mg b.i.d. FAMILY HISTORY: Noncontributory. SOCIAL HISTORY: The patient is . Her likewise suffers from a degree of dementia. The patient smoked in the past, but does not currently. Two of her children as teenagers with muscular dystrophy. MENTAL STATUS: On exam, the patient does not recognize the examiner, although she does recognize some of the staffs here. She is aware that she is in the hospital. Mood is anxious and briefly tearful. Affect is very brittle. Speech is low in volume and somewhat repetitive. Content of thought is negative for overt psychosis. The patient is oriented to person and the fact that she is in a hospital, although she cannot recall the name. She is not correctly oriented as to time. Remote, intermediate and short-term recall all showed very significant deficits. Insight is quite limited. Judgment is also limited. DIAGNOSTIC IMPRESSION: AXIS I: Alzheimer dementia with behavioral disturbance. AXIS II: No diagnosis. AXIS III: Hypertension, hypercholesterolemia, chronic constipation, inhalant allergies. AXIS IV: Moderate. AXIS V: 36. PLAN: 1. The patient is admitted for further medication revision as indicated. 2. Daily supportive therapy. 3. We will work with attending physician regarding followup care and placement issues if needed. TRANSINT:[id number] Voice Confirmation ID: [id number] DOCUMENT ID: [id number] ZIA CHRISTOPHER III, MD at 1017 CC: [id number] DICTATION DATE: 01/21/17 1139 JTAC: 01/21/17 1242 ADM IN [id number] [place] [address]
[2017-01-22 11:18] LABS: VITAMIN D 25 HYDROXY 40.8 ng/mL (30.0-100.0)
--- NOTE | 2017-01-22 14:00 | NUR ---
B) PATIENT IS AWAKE AND ALERT, SHE IS EASIER TO REDIRECT TODAY, SHE IS TAKING HER MEDICATION AND SHE DOES ASK ABOUT HER FAMILY AND HER SPOUSE, BUT SHE IS REDIRECTABLE WHEN STAFF EXPLAIN SHE IS HERE FOR JUST A FEW DAYS. PATIENT CAN AMBULATE, BUT SHE IS UNSTEADY, SHE SHOULD USE A WALKER OR A W/C. I) PROVIDE PRESCRIBED MEDS. R) PATIENT IS COMPLIANT WITH MEDS. P) CONTINUE PLAN OF CARE.
[2017-01-22 19:20] VITALS: BP 140/70
--- NOTE | 2017-01-23 06:04 | NUR ---
RECEIVED IN DAYROOM SITTING IN CHAIR. SMILING AND FRIENDLY. CALM AND COOPERATIVE WITH CARE. ASSESSMENT COMPLETED PER FLOW SHEET. SHE IS VERY ANXIOUS AND TALKING ABOUT HER . NO AGGRESSION NOTED. COMPLIANT WITH MEDICATIONS. REDIRECT AND REORIENT NEEDED. CONTINUE PLAN OF CARE.
[2017-01-23 09:25] VITALS: BP 158/75
--- NOTE | 2017-01-23 09:38 | PN ---
PATIENT:ELODIA PARNELL MEDICAL RECORD: [id number] LOCATION:[facility] Dill112 ADMISSION DATE: 01/20/17 PROGRESS NOTE DATE OF SERVICE: 01/22/2017 SUBJECTIVE: No new complaint. OBJECTIVE: Staff reports the patient has been angry at her , but otherwise has been reasonably cooperative. She is participating in group activities and tolerating medications. On exam, mood is somewhat irritable. Affect is shallow. Speech is somewhat tangential. Content of thought is negative for overt psychosis. Sensorium shows no change. ASSESSMENT: No change in diagnosis. PLAN: 1. Continue current medications. 2. Continue supportive therapy. TRANSINT:[id number] Voice Confirmation ID: [id number] DOCUMENT ID: [id number] ZIA CHRISTOPHER III, MD at 0938 CC: [id number] DICTATION DATE: 01/22/17 1205 WOOD BUFFER: 01/22/17 2242 ADM IN [id number] [place] [address]
--- NOTE | 2017-01-23 10:00 | NUR ---
B) PATIENT IS AWAKE AND ALERT, SHE IS ANXIOUS, BUT SHE CAN BE REDIRECTED. SHE WORRIES AND FRETS ABOUT STAYING HERE FOREVER AND TALKS ABOUT WALKING HOME. PATIENT IS AMBULATING AT TIMES AND OTHER TIMES SITTING IN THE W/C, SHE IS UNSTEADY. PATIENT HAS POOR SHORT TERM MEMORY RECALL SHE WILL FORGET WHAT WAS SAID WITHIN A FEW MINUTES. I) PROVIDE PRESCRIBED MEDS. R) PATIENT IS COMPLIANT WITH MEDS AND SHE IS LISTENING TO STAFF NOW AND CALMS DOWN. P) CONTINUE PLAN OF CARE.
[2017-01-23 20:12] VITALS: BP 154/73
[2017-01-24 08:40] VITALS: BP 159/72
[2017-01-24 19:30] VITALS: BP 159/76
--- NOTE | 2017-01-25 00:02 | NUR ---
B) Recieved patient in the day room, alert and oriented to self, patient is very confused, pleasant and cooperative with staff, I) Administered perscribed medications, monitored for safety, redirected as needed, R) Medication compliant, friendly and social with staff and peers, P) Continue plan of care, continue to monitor.
[2017-01-25 07:00] VITALS: BP 191/64
--- NOTE | 2017-01-25 14:41 | NUR ---
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
--- NOTE | 2017-01-25 17:34 | NUR ---
PATIENT ATTEMPTED TO CALL SPOUSE AND THERE WAS NO ANSWER SO WE CALLED [facility] AND SPOKE TO STAFF THERE AND THEY ARE GOING TO HAVE PATIENTS SPOUSE CALL HER IN ALITTLE WHILE.
--- NOTE | 2017-01-25 18:10 | NUR ---
PATIENT'S SPOUSE DID CALL AND THEY DID TALK TOGETHER ON THE PHONE. PATIENT GOT A LITTLE UPSET, BUT SHE WAS EASILY REDIRECTED.
[2017-01-25 19:30] VITALS: BP 131/81
--- NOTE | 2017-01-25 20:04 | NUR ---
RECEIVED IN DAYROOM. SITTING IN CHAIR WITH PEERS BY HER SIDE. SOCIALIZING WITH PEERS. CALM AND COOPERATIVE WITH CARE AND ASSESSMENTS. NO SIGNS OF AGGRESSIOM. CONFUSED. REDIRECT AND REORIENT NEEDED. CONTINUE PLAN OF CARE
[2017-01-26 07:00] VITALS: BP 117/75
--- NOTE | 2017-01-26 09:00 | PN ---
PATIENT:ELODIA PARNELL MEDICAL RECORD: [id number] LOCATION:[facility] Dill112 ADMISSION DATE: 01/20/17 PROGRESS NOTE DATE OF SERVICE: 01/23/2017 SUBJECTIVE: No new complaint. OBJECTIVE: The patient continues to show considerable confusion. She has episodes of agitation, but can be redirected. On exam, mood is slightly anxious. Affect is somewhat constricted today. Speech is repetitive. Content of thought focuses on nonspecific paranoid ideation. Sensorium shows no change. ASSESSMENT: No change in diagnosis. PLAN: 1. Continue present medications. 2. Continue supportive therapy. TRANSINT:[id number] Voice Confirmation ID: [id number] DOCUMENT ID: [id number] ZIA CHRISTOPHER III, MD at 0900 CC: [id number] DICTATION DATE: 01/23/171128 FOREIGN COLLECTION CLERK: 01/23/17 2114 ADM IN [facility] [address] [place] [address]
--- NOTE | 2017-01-26 13:00 | NUR ---
Received this am alert and oriented to name and place. pleasant and calm. Redirect and reorient. Encourage group participation and expression of feelings. Paces on unit with some exit seeking behavior. Redirect easily. Brief orientation to place. No suicidial ideations. Contracts for no self harm. Does show some agitation when phone rings, "is that Santosh I know that's Santosh." cooperative. Monitored when ambulating. Safety maintained. Continue plan of care.
--- NOTE | 2017-01-26 14:59 | NUR ---
Nutrition follow-up: Diet: Regular PO intake ~65% average of last 9 meals Labs reviewed +BM Wt stable RDN following.
[2017-01-26 19:30] VITALS: BP 182/60
--- NOTE | 2017-01-26 19:46 | NUR ---
RECEIVED IN DAYROOM. WALKING ABOUT SOCIALIZING WITH PEERS. NEGATIVE STATEMENTS. INTRUSIVE AT TIMES. CALM AND COOPERATIVE WITH CARE AND ASSESSMENTS. NO SIGNS OF AGGRESSION. WALKING ABOUT HALLWAY OUTSIDE OF NURSES STAION SOCIALIZING AT THIS TIME. CONTINUE PLAN OF CARE
[2017-01-27 10:14] VITALS: BP 163/55
--- NOTE | 2017-01-27 10:15 | PN ---
PATIENT:ELODIA PARNELL MEDICAL RECORD: [id number] LOCATION:[facility] Dill112 ADMISSION DATE: 01/20/17 PROGRESS NOTE DATE OF SERVICE: 01/26/2017 SUBJECTIVE: No new complaint. OBJECTIVE: The patient has done well over the weekend. She is tolerating medication well. No further angry outbursts. On exam, mood is pleasant and euthymic. Affect is bland. Speech is low in volume and somewhat terse. Content of thought focuses on somatic concerns only. Sensorium shows no change. ASSESSMENT: No change in diagnosis. PLAN: 1. Maintain current medications. 2. Continue supportive therapy. TRANSINT:[id number] Voice Confirmation ID: [id number] DOCUMENT ID: [id number] ZIA CHRISTOPHER III, MD at 1015 CC: [id number] DICTATION DATE: 01/26/17 1040 HOSPITAL INTERN: 01/26/17 1332 ADM IN [id number] [place] [address]
--- NOTE | 2017-01-27 15:01 | NUR ---
RECEIVED AMBULATORY IN UNIT.ORIENTED TO SELF AND KNOWS SHE IS AT HOSPITAL BUT IS VERY FORGETFUL.TALKS ABOUT SPOUSE AND WANTING TO SEE HIM.NO SIGNS OF AGGRESSION OBSERVED.WILL CONTINUE WITH PLAN OF CARE.IS COMPLIANT WITH MEDS AND STAFF.
[2017-01-27 19:43] VITALS: BP 185/56
--- NOTE | 2017-01-27 20:03 | NUR ---
RECEIVED IN DAYROOM. SITTING IN CHAIR. SOCIALIZING WITH A PEERS. CALM AND COOPERATIVE WITH CARE AND ASSESSMENTS. NO SIGNS OF AGGRESSION. REDIRECT AND REORIENT NEEDED. CONTINUES TO SOCIALIZE WITH PEERS. CONTINUE PLAN OF CARE
[2017-01-28 08:49] VITALS: BP 161/109
--- NOTE | 2017-01-28 10:00 | NUR ---
B) Received pt in day room, alert, calm, cooperative with meds. I) Meds admin per orders. R) No s/s adverse reaction to meds. P) Cont plan of care including meds and group therapy.
--- NOTE | 2017-01-28 11:42 | PN ---
PATIENT:ELODIA PARNELL MEDICAL RECORD: [id number] LOCATION:[facility] Dill112 ADMISSION DATE: 01/20/17 PROGRESS NOTE DATE OF SERVICE: 01/27/2017 SUBJECTIVE: The patient remains significantly confused; however, she is cooperative. On exam, mood is slightly anxious. Affect is shallow. Speech is tangential. Content of thought exhibits delusional ideation due to sensorium deficits. Sensorium is unchanged. ASSESSMENT: No change in diagnosis. PLAN: 1. Continue present medications. 2. Continue supportive therapy. TRANSINT:[id number] Voice Confirmation ID: [id number] DOCUMENT ID: [id number] ZIA CHRISTOPHER III, MD at 1142 CC: [id number] DICTATION DATE: 01/27/17 1119 HELP DESK REPRESENTATIVE: 01/27/172003 ADM IN [facility] [address] [place] [address]
[2017-01-28 20:00] VITALS: BP 176/52
--- NOTE | 2017-01-29 01:01 | NUR ---
B) Recieved patient in the day room, alert and oriented to self, confused and wanders at times, ambulates independantly, I) Administered perscribed medications, monitored for falls and safety, R) Medication compliant, pleasant and friendly, P) Continue plan of care.
[2017-01-29 08:30] VITALS: BP 184/87
--- NOTE | 2017-01-29 09:46 | PN ---
PATIENT:ELODIA PARNELL MEDICAL RECORD: [id number] LOCATION:[facility] Dill112 ADMISSION DATE: 01/20/17 PROGRESS NOTE DATE OF SERVICE: 01/28/2017 SUBJECTIVE: No new complaint. OBJECTIVE: The patient is doing well, tolerating medications without difficulty and cooperative with staff. On exam, mood is pleasant and euthymic. Affect is appropriate. Speech is somewhat tangential. Content of thought is negative for overt psychosis. Sensorium shows no change. ASSESSMENT: No change in diagnosis. PLAN: 1. Continue current treatment plan. 2. Anticipate discharge tomorrow. TRANSINT:[id number] Voice Confirmation ID: [id number] DOCUMENT ID: [id number] ZIA CHRISTOPHER III, MD at 0946 CC: [id number] DICTATION DATE: 01/28/17 1255 SALES PERFORMANCE MANAGER: 01/28/172008 ADM IN [facility] [address] [place] [address]
--- NOTE | 2017-01-29 10:30 | NUR ---
B) PATIENT IS AWAKE AND ALERT, SHE HAS BEEN TOLD SHE WILL LEAVE TODAY SO SHE HAS BEEN ANXIOUS ABOUT THAT, SHE IS HAPPY, SHE WANTS TO SEE HER , BUT SHE IS PACING AND SHE HAS PACKED HER BAG AND COME OUT INTO THE HALLWAY. PATIENT IS CONFUSED, SHE HAS POOR SHORT TERM MEMORY RECALL. SHE IS AMBULATORY, BUT UNSTEADY. I) PROVIDE PRESCRIBED MEDS. R) PATIENT IS COMPLIANT WITH MEDS AND UNIT MILIEU. P) CONTINUE WITH D/C PLAN.
--- NOTE | 2017-01-29 14:30 | NUR ---
PATIENT D/C'D BACK TO [facility] AND A HARD COPY OF D/C PAPERWORK AND MAR GIVEN TO SYSTEMS PROGRAM MANAGER.
== END 2017-01-29 14:35 | DRG 57 ==
LOC: D.PSYCH 14:16
PROVIDERS: ADMIT Psychiatry & Neurology Psychiatry
DX: G30.9 Alzheimer's disease, unspecified (principal); F02.81 Dementia in other diseases classified elsewhere, unspecified severity, with behavioral disturbance; I10 Essential (primary) hypertension; E78.00 Pure hypercholesterolemia, unspecified; K59.09 Other constipation; F41.8 Other specified anxiety disorders; D50.9 Iron deficiency anemia, unspecified; E55.9 Vitamin D deficiency, unspecified; J30.9 Allergic rhinitis, unspecified; R26.89 Other abnormalities of gait and mobility